=== PATIENT | female | born 1935 | race Caucasian/White ===

== ENCOUNTER → 2017-02-14 | Outpatient (CLI) | payer MEDICARE, OTHER ==
[~2017-02-14] MED LIST: AMLO5TAB2 PO; ASPI1TAB69 PO; GLIM1TAB PO; ISOS20TA2 PO; LIPI80TA PO; LOSA100T PO; METO50TA11 PO; OXYC1TAB63 PO; PLAV75TA29 PO; ULOR40TA PO
[2017-02-14 15:03] LABS: AUTOMATED NEUTROPHIL # 4.4 TH/MM3 (1.8-7.7); BASOPHIL # 0.1 TH/MM3 (0-0.2); BASOPHIL % 1.2 % (0.0-2.0); EOSINOPHIL # 0.2 TH/MM3 (0-0.4); EOSINOPHIL % 3.4 % (0.0-4.0); HEMATOCRIT 41.3 % (35.0-46.0); HEMO FLAGS DIFF FINAL; LYMPH % 19.4 % (9.0-44.0); LYMPHOCYTE # 1.3 TH/MM3 (1.0-4.8); MEAN CELL VOLUME 89.1 FL (80.0-100.0); MEAN CORPUSCULAR HGB CONC 33.7 % (32.0-36.0); MONO % 9.4 % (0.0-8.0); NEUT % 66.6 % (16.0-70.0); PLATELET COUNT 273 TH/MM3 (150-450); RED BLOOD COUNT 4.64 MIL/MM3 (4.00-5.30); RED CELL DISTRIBUTION WIDTH 13.3 % (11.6-17.2); WHITE BLOOD COUNT 6.6 TH/MM3 (4.0-11.0)
[2017-02-14 15:15] LABS: PROTHROMBIN TIME - PATIENT 10.7 SEC (9.8-11.6)
[2017-02-14 15:25] LABS: ALT (GPT) 31 U/L (10-53); ANION GAP 5 MEQ/L (5-15); AST (GOT) 19 U/L (15-37); BICARBONATE 28.9 MEQ/L (21.0-32.0); BLOOD UREA NITROGEN 20 MG/DL (7-18); CHLORIDE 109 MEQ/L (98-107); GLOMERULAR FILTRATION RATE 56 ML/MIN (>89); GLUCOSE,FASTING 97 MG/DL (74-99); POTASSIUM 4.4 MEQ/L (3.5-5.1); SODIUM (NA) 143 MEQ/L (136-145)
[2017-02-14 15:27] LABS: ALKALINE PHOSPHATASE 105 U/L (45-117); TOTAL BILIRUBIN ADULT 0.6 MG/DL (0.2-1.0)
--- NOTE | 2017-02-14 17:10 | RADRPT ---
EXAM DATE/TIME: 02/14/2017 15:33 [place] COMPARISON: No previous studies available for comparison. INDICATIONS : Evaluate for pneumonia, pneumothorax, or communicable disease. Pre op for ovarian surgery. MEDICAL HISTORY : Myocardial infarction. SURGICAL HISTORY : Coronary artery stent. ENCOUNTER: Initial ACUITY: 1 day PAIN SCORE: 0/10 LOCATION: Bilateral chest FINDINGS: PA and lateral views of the chest demonstrate the lungs to be symmetrically aerated without evidence of mass, infiltrate or effusion. The cardiomediastinal contours are unremarkable. Osseous structure s are intact. CONCLUSION: No acute cardiopulmonary disease. Gurpreet Sharp MD on February 14, 2017 at 17:08 Board Certified Radiologist. This report was verified electronically.
== END ==
LOC: CPRE 14:29
PROVIDERS: ATTEND Obstetrics & Gynecology Gynecologic Oncology
DX: Z01.812 Encounter for preprocedural laboratory examination (principal); Z01.818 Encounter for other preprocedural examination; R19.09 Other intra-abdominal and pelvic swelling, mass and lump; Z79.01 Long term (current) use of anticoagulants; I25.2 Old myocardial infarction
CPT/HCPCS: 36415; 71020; 80053; 85025; 85610; 85730

== ENCOUNTER 2017-02-25 05:42 | Observation (INO) | payer MEDICARE, OTHER ==
[~2017-02-25] VITALS: Ht 160 cm; Wt 78.0 kg
[~2017-02-25 05:42] MED LIST changes: -OXYC1TAB63 PO
[2017-02-25 06:30] VITALS: BP 153/69; PULSE 67; RESP 18; TEMP 98.3; O2SAT 97
[2017-02-25] MEDS ORDERED: HEPARIN SODIUM - SQ 10,000 UNITS/ML VIAL ONE (06:45)
[2017-02-25] MEDS ORDERED: ceFAZolin INJ 1,000 MG VIAL ONE (06:45)
[2017-02-25] MEDS ORDERED: SODIUM CHLORIDE 0.9% INJ 100 ML ONE (06:46)
[2017-02-25] MEDS ORDERED: ARTIFICIAL TEARS OPTH OINT 3.5 APPLIC/3.5 GM TUBO ONE (06:53)
[2017-02-25] MEDS ORDERED: SUGAMMADEX SODIUM 200 MG/2 ML VIAL IV PUSH ONE ×2 (06:53)
[2017-02-25] MEDS ORDERED: ACETAMINOPHEN 1000 MG/100 ML VIAL IV ONE (06:53)
[2017-02-25] MEDS ORDERED: LIDOCAINE 1%/EPINEPHrine 1:100,000 SOLN 50 ML VIAL ONE (07:13)
[2017-02-25] MEDS ORDERED: MIDAZOLAM HCL 2 MG/2 ML VIAL ONE (07:15)
[2017-02-25] MEDS ORDERED: FAMOTIDINE 20 MG/2 ML VIAL ONE (07:15)
[2017-02-25] MEDS ORDERED: DEXAMETHASONE SOD PHOS 4 MG/ML VIAL ONE (07:16)
[2017-02-25] MEDS ORDERED: LIDOCAINE 1%/EPINEPHrine 1:100,000 SOLN 50 ML VIAL INFIL ONE (08:44)
[2017-02-25] MEDS ORDERED: METHYLENE BLUE 100 MG/10 ML VIAL OTHER ONE (10:00)
[2017-02-25] MEDS ORDERED: SILVER NITR/POTASSIUM NITRATE APPLICATORS TOPICAL ONE (10:35)
[2017-02-25] MEDS ORDERED: SODIUM CHLORIDE 0.9% FLUSH 10 ML FLUSH IV FLUSH PRN (11:00)
[2017-02-25] MEDS ORDERED: LORazepam 0.5 MG TAB PO PRN (11:00)
[2017-02-25] MEDS ORDERED: oxyCODONE/ACETAMINOPHEN 5 MG/325 MG TAB PO PRN ×2 (11:00)
[2017-02-25] MEDS ORDERED: diphenhydrAMINE HCL 25 MG CAP PO PRN (11:00)
[2017-02-25] MEDS ORDERED: ONDANSETRON HCL 4 MG/2 ML VIAL IVP PRN (11:00)
[2017-02-25] MEDS ORDERED: DO NOT ADM ANY ANTICOAGULANT DRUGS PRN (11:05)
[2017-02-25] MEDS ORDERED: fentaNYL CITRATE 250 MCG/5 ML AMP ONE (11:12)
[2017-02-25] MEDS ORDERED: D5-1/2 NS + KCL 20 MEQ INJ 1,000 ML ONE (11:18)
--- NOTE | 2017-02-25 11:24 | EKG ---
Date Performed: 02/25/2017 Time Performed: 06:33:58 PTAGE: 81 years EKG: Sinus rhythm BORDERLINE LEFT AXIS DEVIATION BORDERLINE ECG PREVIOUS TRACING : 11/11/2001 06.51 Compared to prior tracing no significant change DOCTOR: Vijay Yao Interpretating Date/Time 02/25/2017 11:23:52
[2017-02-25] MEDS: D5-1/2 NS + KCL 20 MEQ INJ 1,000 ML IV SCH ×2 (11:27→23:33)
[2017-02-25] MEDS: KETOROLAC TROMETHAMINE 30 MG/ML (IVP) VIAL IVP SCH ×3 (12:00→23:32)
[2017-02-25] MEDS ORDERED: PROPOFOL 200 MG/20 ML AMP IV ONE (12:00)
[2017-02-25] MEDS ORDERED: NEOSTIGMINE 3 MG/3 ML SYR IV ONE (12:00)
[2017-02-25] MEDS ORDERED: ONDANSETRON HCL 4 MG/2 ML VIAL IV PUSH ONE (12:00)
[2017-02-25] MEDS ORDERED: PHENYLEPH/NS 1000 MCG/10 ML SYR IV ONE (12:00)
[2017-02-25] MEDS ORDERED: NORMOSOL R INJ 1,000 ML IV ONE (12:00)
--- NOTE | 2017-02-25 12:47 | MP ---
cc: EVARISTO MARTINEZ MD,DELORES REGALADO MD DATE OF SURGERY: 02/25/2017 PREOPERATIVE DIAGNOSIS An approximately 13 cm pelvic mass. POSTOPERATIVE DIAGNOSIS 1. Left ovarian mass. 2. Complex atypical endometrial hyperplasia. 3. Incomplete bicornuate uterus. 4. Adhesions. PROCEDURE Robotic-assisted laparoscopic hysterectomy, bilateral salpingo-oophorectomy (with resection of 13-14 cm left ovarian mass), lysis of adhesions. SURGEON Selina Salazar SENIOR BENEFITS ANALYST [employer] ANESTHESIA General endotracheal. ESTIMATED BLOOD LOSS 200 cc. IV FLUIDS 1600 cc. URINE OUTPUT 250 cc. HISTORY An 81-year-old female with abdominopelvic pain found on exam and imaging to have a mass in the pelvis, predominately cystic but with a peripheral solid component. It measured approximately 12 cm on CAT scan imaging. There was no overt evidence to suggest metastatic disease. CAT scan ultrasound confirmed the characteristics of the mass. Tumor markers were not appreciably elevated. She has been counseled regarding options. She is seen again in the pre-op holding area. Irrespective of the pathology she is in favor of complete hysterectomy as well as bilateral salpingo-oophorectomy. She understands that if malignancy is detected additional staging biopsies may be recommended and undertaken. FINDINGS The uterus has a symmetrical indentation at the apex, somewhat heart-shaped. On the external surface the uterine cavity sounded to 10 cm. The uterus is symmetrically enlarged. The right tube and ovary grossly appear normal. The left ovary is replaced by a predominantly cystic mass partially retroperitonealized against the left pelvic sidewall and the posterior cul-de-sac and there are adhesions. The colon as overlying the left pelvic sidewall and there are adhesions affixing the mass to the left pelvic sidewall and posterior cul-de-sac. There is no adenopathy. There are no peritoneal implants. The liver and diaphragm edges are smooth. The omentum grossly appears normal. The large and small bowel and adjacent mesentery appear normal without implants. There is some diverticulum without active diverticulosis. Frozen section analysis of the specimen shows the left ovarian mass to be a benign serous cystadenoma. The uterus appears to be and incomplete bicornuate uterus. There is complex atypical endometrial hyperplasia and there is extensive adenomyosis. There are no overt changes on frozen section to suggest endometrial cancer. There is no evidence of invasion on preliminary assessment. DETAILS OF PROCEDURE She was taken to the operating room and placed in the dorsal lithotomy position. After general endotracheal anesthesia was administered a timeout was undertaken. The patient was identified by sight recognition and hospital ID bratulio, and the proposed procedure was reviewed and confirmed. She was carefully positioned in padded Blayne stirrups. Her arms were padded and secured to the sides. She was further secured to the operating table with eggcrate padding and tape in across chest over the shoulder fashion. All sites were noted to be properly aligned with no malalignments or pressure points. She was prepped in sterile fashion, draped below the waist, placed in high lithotomy position. The cervix was grasped. The uterine cavity was sounded. The cervix was dilated. The standard VCare manipulator was inserted and secured in the usual fashion. A Joel catheter was placed in the bladder. She was returned to the low lithotomy position. A change of sterile gloves was undertaken. We completed draping in anticipation of laparoscopy. We confirmed that an orogastric tube was in the stomach on suction and with manual elevation of the abdominal wall a 5 mm cannula was placed in the left upper quadrant. An atraumatic entry was confirmed. Carbon dioxide gas was insufflated. A 12 mm cannula was placed in the midline above the umbilicus, an 8 mm cannula placed in the right upper abdomen and the left lateral abdomen, and the original 5 mm cannula was exchanged for an 8 mm cannula. She was placed in steep Trendelenburg position. Peritoneal washings were obtained for cytology. The anatomy was explored with findings as described above. The small bowel was folded back on its mesenteric root and three Ray-Rafael sponges were placed around the root of the small bowel mesentery. The robotic system was brought into the operative field and attached in the usual fashion. Monopolar scissors, fenestrated bipolar forceps and ProGrasp manipulators were placed in arms #1, 2 and 3 respectively, and I took my place at the surgeon's console. Lysis of adhesion was carried out to mobilize the colon from its overlying position in the left pelvic sidewall to free adhesions from the posterior cul-de-sac and from the ovary against the adjacent peritoneum. The right round ligament was isolated, cauterized and transected. The anterior and posterior leafs of the broad ligament were opened. The right ureter was identified. The right infundibulopelvic ligament was isolated. The intervening peritoneum was opened. The infundibulopelvic ligament was dissected to the level of the pelvic brim where it was cauterized and transected. The posterior peritoneum was opened along the right side of the uterus and cervix and the right vesicouterine peritoneum was dissected off the lower uterine segment and cervix. The right uterine vessels were skeletonized and cauterized. Attention was directed toward the left side where the left retroperitoneal dissection was continued. The left round ligament was isolated, cauterized and transected. Sharp and blunt dissection were used to free the retroperitoneal portion of the mass from the left pelvic sidewall. The left ureter was identified. The left infundibulopelvic ligament was isolated. The intervening peritoneum was opened. The infundibulopelvic ligament was dissected and elevated as dissection was continued toward the pelvic brim where the infundibulopelvic ligament was cauterized and transected. Posterior adhesions between the mass and the lateral adhesions were taken down. There was disruption of the capsule and clear fluid was suctioned from the mass which collapsed it significantly and the remaining adhesions were taken down with sharp dissection. The posterior peritoneum was further dissected along the left side and the left vesicouterine peritoneum was dissected off the lower uterine segment and cervix. The left uterine vessels were skeletonized, cauterized and transected as were the cardinal, paracervical and uterosacral ligaments. Attention was redirected toward the right side where the right uterine vessels were now transected. The cardinal, paracervical and uterosacral ligaments were isolated, cauterized and transected in a stepwise fashion, completing attachments along the right side. Circumferential colpotomy was performed the cervix from the upper vagina. The specimen was withdrawn transvaginally which included uterus, cervix, bilateral tubes and ovaries, and a pneumo-occluder balloon was placed in the vagina to maintain pneumoperitoneum. Instruments 1 and 3 were exchanged for needle drivers as 0 Vicryl suture was introduced. The vaginal cuff was closed starting at the left corner where full-thickness closure including the edge of the uterosacral ligament and posterior peritoneum were incorporated. Countertraction was held as a running continuous full-thickness closure was carried across the vaginal apex to the contralateral corner where it was tied via instrument tie, the needle cut and removed. The integrity of the bladder was checked by filling the bladder with saline dyed with methylene blue. The bladder filled nicely. No extravasation of dye. No thin spots or weak spots in the bladder. There was good margin between the bladder edge and the vaginal cuff suture line. One area where there was deep dissection were a little bit of the vaginal mucosa had been peeled up to the bladder was confirmed as the bladder was further dissected away from this area and confirmed to be not involved in the closure of the cuff. The bladder was then drained. There was good peristalsis of ureters bilaterally. The pelvis was thoroughly irrigated. Small bleeders were rendered hemostatic with bipolar cautery. The pathology came back with benign findings as described above. Accordingly it was felt that all reasonable surgical objectives had been completed. The robotic instruments were removed. The robotic system was disengaged from the operative field. I reentered the bedside under sterile condition. Each of the three Ray-Rafael sponges that were placed in the peritoneal cavity were now removed. Each were inspected and noted to be removed in their entirety. There were no remaining foreign objects in the peritoneal cavity. Preliminary counts were correct. The 12 mm fascial defect was closed with interrupted 0 Vicryl sutures using a needle pass apparatus. The sutures were tied securely which rendered the fascia completely airtight and hemostatic. The remaining cannulas were withdrawn. Carbon dioxide gas was removed from the peritoneal cavity. 3-0 Vicryl subcutaneous and 3-0 Vicryl subcuticular were used to close these incisions followed by Steri-Strips. She was returned to the dorsal lithotomy position. Exam confirmed the vaginal cuff was well-supported. There were no lacerations initially detected but bleeding was noted at the right apex of the vagina and there was a superficial laceration just below the vaginal cuff. This was rendered hemostatic and re-approximated with [id number] 2-0 Vicryl suture and tied securely. The vagina was again inspected and noted to be hemostatic. There were no remaining foreign objects in the vagina. Superficial irritation at the introitus was addressed with topical silver nitrate. Final counts were correct. She was returned to dorsal supine position and was pending reversal of anesthesia when I left the operating room to precede her to the post-anesthesia care unit. MD AMILCAR Baltazar/KELY /11:13 AM /12:26 PM
[2017-02-25 14:25] VITALS: BP 148/71; PULSE 88; RESP 20; TEMP 96.4; O2SAT 96
[2017-02-25 15:26] VITALS: O2SAT 96
--- NOTE | 2017-02-25 15:26 | PD.ONC.PN ---
Subjective Subjective Remarks post op note: pt resting in bed no complaints pain controlled with oral meds denies any n/v Objective Data Date Time Temp Pulse Resp B/P Pulse Ox O2 Delivery O2 Flow Rate FiO2 02/25/17 14:25 96.4 88 20 148/71 96 02/25/17 12:30 73 12 120/55 95 Nasal Cannula 3 02/25/17 12:00 97.3 71 12 116/52 94 Nasal Cannula 3 02/25/17 11:45 73 20 113/54 95 Nasal Cannula 3 02/25/17 11:30 71 20 107/54 95 Nasal Cannula 3 02/25/17 11:15 71 26 104/53 95 Nasal Cannula 3 02/25/17 11:00 97.5 74 12 105/52 95 Nasal Cannula 3 02/25/17 06:30 98.3 67 18 153/69 97 02/25/17 02/25/17 02/25/17 07:00 15:00 23:00 Intake Total 1600 ml Output Total 550 ml Balance 1050 ml Laboratory Results Laboratory Tests Test 02/25/17 06:25 Blood Type A POSITIVE Antibody Screen NEGATIVE Blood Bank Comment Administered Medications Medications (Trade) Dose Ordered Sig/Ilia Route PRN Reason Start Time Stop Time Status Last Admin Dose Admin Ketorolac Tromethamine (Toradol Inj) 15 mg Q6H IVP 02/25/17 12:00 02/26/17 06:01 02/25/17 12:00 Objective Remarks GENERAL: Well-nourished, well-developed patient. SKIN: Warm and dry. HEAD: Normocephalic. EYES: No scleral icterus. No injection or drainage. CARDIOVASCULAR: Regular rate and rhythm without murmurs. RESPIRATORY: Breath sounds equal bilaterally. No accessory muscle use. GASTROINTESTINAL: Abdomen soft, SS are c/d/i EXTREMITIES: teds MUSCULOSKELETAL: Adequate muscle tone. NEUROLOGICAL: No obvious focal deficit. Awake, alert, and oriented x3. PSYCHIATRIC: Appropriate mood and affect; insight and judgment normal. Assessment/Plan Problem List: (1) Pelvic mass in female Status: Resolved Plan: s/p RA lap hyst with BSO and resection of pelvic mass pathology pending (2) Post-operative state Status: Acute Plan: post op orders in chart ADAT OOB to chair anticipate d/c mendoza in am pain meds per EMR IS to bedside anticipate d/c home in next 24 hours [facility] Feb 25, 2017 15:26
[2017-02-25 16:00] VITALS: BP 105/72; PULSE 93; RESP 20; TEMP 100.1; O2SAT 99
[2017-02-25] MEDS: INSULIN NovoLIN REGULAR SUPPLEMENTAL SCALE SQ SCH ×2 (17:48→20:46)
[2017-02-25 19:40] VITALS: O2SAT 98
[2017-02-25 20:00] VITALS: BP 143/67; PULSE 83; RESP 17; TEMP 98.6; O2SAT 97
[2017-02-25] MEDS: SODIUM CHLORIDE 0.9% FLUSH 10 ML FLUSH IV FLUSH SCH (20:44)
[2017-02-25] MEDS: METOPROLOL SUCCINATE 50 MG EXTENDED RELEASE TAB PO SCH (20:46)
[2017-02-25] MEDS ORDERED: ATORVASTATIN 80 MG TAB PO SCH (21:00)
[2017-02-25] MEDS ORDERED: FEBUXOSTAT 40 MG PO SCH (21:00)
[2017-02-26] VITALS: BP 153/69; PULSE 75; RESP 18; TEMP 98.1; O2SAT 98
[2017-02-26 05:00] VITALS: BP 165/73; PULSE 59; RESP 18; TEMP 97.1; O2SAT 96
[2017-02-26] MEDS: KETOROLAC TROMETHAMINE 30 MG/ML (IVP) VIAL IVP SCH (05:18)
[2017-02-26] MEDS: INSULIN NovoLIN REGULAR SUPPLEMENTAL SCALE SQ SCH (05:19)
[2017-02-26 05:36] LABS: AUTOMATED NEUTROPHIL # 9.7 TH/MM3 (1.8-7.7); BASOPHIL % 0.1 % (0.0-2.0); HEMATOCRIT 38.3 % (35.0-46.0); HEMO FLAGS DIFF FINAL; LYMPH % 6.8 % (9.0-44.0); LYMPHOCYTE # 0.8 TH/MM3 (1.0-4.8); MEAN CELL VOLUME 88.8 FL (80.0-100.0); MEAN CORPUSCULAR HEMOGLOBIN 30.3 PG (27.0-34.0); MEAN CORPUSCULAR HGB CONC 34.2 % (32.0-36.0); MONO % 6.7 % (0.0-8.0); NEUT % 86.4 % (16.0-70.0); PLATELET COUNT 250 TH/MM3 (150-450); RED BLOOD COUNT 4.31 MIL/MM3 (4.00-5.30); RED CELL DISTRIBUTION WIDTH 13.2 % (11.6-17.2); WHITE BLOOD COUNT 11.3 TH/MM3 (4.0-11.0)
[2017-02-26 05:48] LABS: BICARBONATE 26.6 MEQ/L (21.0-32.0); POTASSIUM 4.2 MEQ/L (3.5-5.1)
[2017-02-26 08:00] VITALS: BP 171/73; PULSE 62; RESP 18; TEMP 97.1; O2SAT 94
[2017-02-26] MEDS: METOPROLOL SUCCINATE 50 MG EXTENDED RELEASE TAB PO SCH (08:13)
[2017-02-26] MEDS: SODIUM CHLORIDE 0.9% FLUSH 10 ML FLUSH IV FLUSH SCH (08:16)
[2017-02-26] MEDS ORDERED: OXYC1TAB63 PO (08:37)
[2017-02-26] MEDS ORDERED: LOSARTAN 50 MG TAB PO SCH (09:00)
[2017-02-26] MEDS ORDERED: ISOSORBIDE DINITRATE 20 MG TAB PO SCH (09:00)
[2017-02-26] MEDS ORDERED: amLODIPine BESYLATE 5 MG TAB PO SCH (09:00)
--- NOTE | 2017-03-04 13:08 | MD ---
cc: EVARISTO MARTINEZ MD, JEFFREY D.O. MOLPUS,YOLANDA Lucero MD ADMISSION DATE: 02/25/2017 DISCHARGE DATE: 02/26/2017 PROCEDURE February 25, 2017, robotic-assisted laparoscopic hysterectomy, bilateral salpingo-oophorectomy (with resection of left ovarian mass, lysis of adhesions). DIAGNOSIS Left ovarian serous cystadenoma, endometrium atypical complex hyperplasia adenomyosis. HOSPITAL COURSE She did well during early hospitalization, temperature maximum 100.1 degrees, currently afebrile. In's and out's have been . Labs this morning H&H 13.1 and 38.3, white count 11.3, platelets 250. Electrolytes essentially normal. BUN and creatinine 13 and 1.01 which is not significantly changed from baseline. Glucose elevated modestly at 189. PHYSICAL EXAMINATION VITAL SIGNS: As stated, currently afebrile, pulse ranging 59-93, respirations 17, blood pressure 105-165 over 67-73, O2 saturations greater than or equal to 96%. GENERAL: Alert and oriented x3. LUNGS: Clear except for mild basilar rales. CARDIOVASCULAR: Regular rate and rhythm. ABDOMEN: Soft. Incisions clean, dry. MUSIC PUBLISHER: No active bleeding. EXTREMITIES: Nontender. ASSESSMENT Postop day #1 doing well in early postoperative period. Activities, restrictions discussed and reviewed. Preliminary pathology was reviewed. Questions were asked and answered. She expressed good understanding and is tolerating oral intake. Joel catheter has been removed pending voiding. PLAN Anticipate meeting criteria for discharge to home today. She is to contact our office to schedule follow up in 2 weeks. She is to resume prior medications. She can restart her aspirin and Plavix tomorrow or on the subsequent day. Prescription for pain medication (Percocet) has been provided and she is to contact our office should she have any questions or problems between now and the time of scheduled followup. MD AMILCAR Baltazar/NILAY /8:42 AM /12:57 PM
== END 2017-02-26 10:35 | disposition home or self-care (01) ==
LOC: HSDC 05:42 → HSDI 10:55 → HOCA 12:45
PROVIDERS: ADMIT Obstetrics & Gynecology Gynecologic Oncology; ATTEND Obstetrics & Gynecology Gynecologic Oncology
DX: N85.02 Endometrial intraepithelial neoplasia [EIN] (principal); D27.9 Benign neoplasm of unspecified ovary; N73.6 Female pelvic peritoneal adhesions (postinfective); N80.0 Endometriosis of uterus; Q51.3 Bicornate uterus; I10 Essential (primary) hypertension; E78.5 Hyperlipidemia, unspecified; I25.10 Atherosclerotic heart disease of native coronary artery without angina pectoris; Z95.5 Presence of coronary angioplasty implant and graft
CPT/HCPCS: 00840; 58571; 80048; 85025; 86850; 86900; 86901; 88112; 88307; 88331; 93005; 94150; G0378; J0131; J0690; J1100; J1644; J1885; J2250; J2370; J2405; J2710; J3010; J3480